=== PATIENT | male | born 1950 ===

== ENCOUNTER 2020-01-17 12:15 | Emergency (ER) | payer OTHER ==
[2020-01-17] MEDS ORDERED: ONDANSETRON HCL INJ/PF 4 MG/2 ML SDV IV ONE ×2 (12:48→17:37)
[2020-01-17] MEDS ORDERED: MORPHINE SULFATE 10 MG/ML INJ IV ONE ×3 (12:48→18:59)
--- NOTE | 2020-01-17 12:50 | ER Document Report ---
ED Medical Screen (RME) - General Chief Complaint: Abdominal Pain Stated Complaint: ABDOMINAL PAIN Time Seen by Provider: 01/17/20 12:42 Primary Care Provider: SIM CARRERA MD [Primary Care Provider] - Follow up as needed Mode of Arrival: Ambulatory Information source: Patient Notes: HPI; 69-year-old male presents to the emergency room with persistent abdominal p ain for the past 13 days. States it comes and goes but has gotten progressively worse over the past 2 days. States he has a history of pancreatitis unknown cause. Complains of nausea but no vomiting. PE: Alert and oriented x3. Lungs: Clear to auscultation without rales, rhonchi, wheezes. Heart: Regular rate rhythm without murmurs, rubs, gallops. Unable to do full abdominal exam in triage I have greeted and performed a rapid initial assessment of this patient. A comprehensive ED assessment and evaluation of the patient, analysis of test results and completion of the medical decision making process will be conducted by additional ED providers. I have specifically instructed the patient or family members with the patient to immediately return to any nursing staff should anything change in the patient's condition or with their chief complaint. TRAVEL OUTSIDE OF THE [place] IN LAST 30 DAYS: No - Related Data Allergies/Adverse Reactions: Penicillins Allergy (Verified 01/17/20 12:47) zolpidem [From Ambien] Allergy (Verified 01/17/20 12:47) Past Medical History - Social History Frequency of alcohol use: None Drug Abuse: None Physical Exam - Vital signs Vitals: Temp Pulse Resp BP Pulse Ox 97.5 F 85 16 133/70 H 100 01/17/20 12:24 01/17/20 12:24 01/17/20 12:24 01/17/20 12:24 01/17/20 12:24 Course - Vital Signs Vital signs: Temp Pulse Resp BP Pulse Ox 97.5 F 85 16 133/70 H 100 01/17/20 12:24 01/17/20 12:24 01/17/20 12:24 01/17/20 12:24 01/17/20 12:24 Doctor's Discharge - Discharge Referrals: SIM CARRERA MD [Primary Care Provider] - Follow up as needed
[2020-01-17 13:42] LABS: ABSOLUTE EOSINOPHILS # (AUTO) 0.2 10^3/uL (0.0-0.6); ABSOLUTE LYMPHOCYTES (AUTO) 3.9 10^3/uL (0.5-4.7); ABSOLUTE MONOCYTES (AUTO) 0.7 10^3/uL (0.1-1.4); ABSOLUTE NEUT (AUTO) 4.5 10^3/uL (1.7-8.2); BASOPHILS % (AUTO) 0.4 % (0-2); EOSINOPHILS % (AUTO) 1.8 % (0-6); HEMOGLOBIN 18.6 g/dL (13.5-17.0); LYMPHOCYTES % (AUTO) 41.7 % (13-45); MEAN CORPUSCULAR HEMOGLOBIN 29.8 pg (27.0-33.4); MEAN CORPUSCULAR HGB CONC 33.7 g/dL (32.0-36.0); MEAN CORPUSCULAR VOLUME 88 fl (80-97); MONOCYTES % (AUTO) 7.2 % (3-13); PLATELET COUNT 211 10^3/uL (150-450); RED BLOOD COUNT 6.25 10^6/uL (4.35-5.55); RED CELL DISTRIBUTION WIDTH 14.3 % (11.5-14.0); SEGMENTED NEUTROPHILS % (AUTO) 48.9 % (42-78); TOTAL CELLS COUNTED % (AUTO) 100 %; WHITE BLOOD COUNT 9.3 10^3/uL (4.0-10.5)
[2020-01-17 13:46] LABS: HEMATOCRIT 55.3 % (37.9-51.0)
[2020-01-17 14:03] LABS: ALBUMIN 4.6 g/dL (3.5-5.0); ALKALINE PHOSPHATASE 99 U/L (38-126); AMYLASE 69 U/L (30-110); ANION GAP 9 (5-19); ASPARTATE AMINO TRANSFERASE 39 U/L (17-59); BILIRUBIN,DIRECT 0.4 mg/dL (0.0-0.4); BILIRUBIN,TOTAL 1.1 mg/dL (0.2-1.3); BLOOD UREA NITROGEN 23 mg/dL (7-20); CALCIUM 10.2 mg/dL (8.4-10.2); CARBON DIOXIDE 30 mmol/L (22-30); CHLORIDE 101 mmol/L (98-107); GLUCOSE 104 mg/dL (75-110); POTASSIUM 4.6 mmol/L (3.6-5.0); TOTAL PROTEIN 7.7 g/dL (6.3-8.2)
--- NOTE | 2020-01-17 15:35 | RADIOLOGY REPORT (SQ) ---
EXAM DESCRIPTION: CT ABD/PELVIS NO ORAL OR IV IMAGES COMPLETED DATE/TIME: 01/17/2020 3:19 pm REASON FOR STUDY: abdominal pain COMPARISON: None. TECHNIQUE: CT scan of the abdomen and pelvis performed without intravenous or oral contrast. Images reviewed with lung, soft tissue, and bone windows. Reconstructed coronal and sagittal MPR images revi ewed. All images stored on PACS. All CT scanners at this facility use dose modulation, iterative reconstruction, and/or weight based d osing when appropriate to reduce radiation dose to as low as reasonably achievable (ALARA). [facility]: Dose Right [facility]: CareDose [facility]: Dose Right [facility]: Teradose 4D [facility]: Smava RADIATION DOSE: CT Rad equipment meets quality standard of care and radiation dose reduction techniq ues were employed. CTDIvol: 6.8 mGy. DLP: 369 mGy-cm.mGy. LIMITATIONS: None. FINDINGS: LOWER CHEST: No significant findings. No nodules or infiltrates. NON-CONTRASTED LIVER, SPLEEN, ADRENALS: Evaluation limited by lack of IV contrast. No identified sign ificant masses. PANCREAS: No masses. No peripancreatic inflammatory changes. GALLBLADDER: Surgically absent. RIGHT KIDNEY AND URETER: Surgically absent. LEFT KIDNEY AND URETER: No suspicious masses. Assessment limited by lack of IV contrast. No signifi cant calcifications. No hydronephrosis or hydroureter. AORTA AND RETROPERITONEUM: 3.6 cm infrarenal aortic aneurysm. BOWEL AND PERITONEAL CAVITY: No obvious masses or inflammatory changes. No free fluid. APPENDIX: Surgically absent. PELVIS, BLADDER, AND ABDOMINAL WALL:No abnormal masses. No free fluid. Bladder normal. BONES: No significant findings. OTHER: No other significant finding. IMPRESSION: 3.6 cm aortic aneurysm. Status post right nephrectomy. No acute findings. COMMENT: Quality ID # [id number]: Final reports with documentation of one or more dose reduction techniques (e.g., Automated exposure control, adjustment of the mA and/or kV according to patient size, use of iterative reconstruction technique) TECHNICAL DOCUMENTATION: JOB ID: [id number] 2010 [employer]- All Rights Reserved Reading location - IP/workstation name: [email or web address]
[2020-01-17] MEDS ORDERED: NORMAL SALINE 1000 ML 1,000 ML IV ONE (17:37)
--- NOTE | 2020-01-17 17:38 | ER Document Report ---
ED GI/ - General Chief Complaint: Abdominal Pain Stated Complaint: ABDOMINAL PAIN Time Seen by Provider: 01/17/20 12:42 Primary Care Provider: [facility] [Provider Group] - Follow up as needed SIM CARRERA MD [COMMUNITY BASED STAFF] - Follow up as needed Mode of Arrival: Ambulatory Information source: Patient Notes: Patient presents complaining of abdominal pain for the past 13 days that worsened over the past 2 days. Patient has a history of pancreatitis and suspects the same today. Patient reports nausea without any vomiting or diarrhea. Patient denies any fever. Patient denies any urinary symptoms. Patient reports decreased oral intake over the past several days as he was trying to manage his pancreatitis symptoms at home and he knows food exacerbates the symptoms. TRAVEL OUTSIDE OF THE [place] IN LAST 30 DAYS: No - HPI Patient complains to provider of: Abdominal pain. No: Vomiting Onset: Other - 2 weeks Timing/Duration: Worse Quality of pain: Sharp Pain Level: 5 Location: Epigastric, Other - Umbilical Associated symptoms: Loss of appetite, Nausea. denies: Diarrhea, Fever, Vomiting Exacerbated by: Denies Relieved by: Denies Similar symptoms previously: Yes Recently seen / treated by doctor: No - Related Data Allergies/Adverse Reactions: Penicillins Allergy (Verified 01/17/20 12:47) zolpidem [From Ambien] Allergy (Verified 01/17/20 12:47) Past Medical History - General Information source: Patient - Social History Smoking Status: Current Every Day Smoker Frequency of alcohol use: None Drug Abuse: None Lives with: Family Family History: Reviewed & Not Pertinent - Past Medical History Cardiac Medical History: Reports: Other - Aortic aneurysm, peripheral vascular disease Pulmonary Medical History: Reports: Hx COPD, Other - Pulmonary nodule Malignancy Medical History: Reports Hx Renal (Kidney) Cancer GI Medical History: Reports: Hx Pancreatitis Past Surgical History: Reports: Hx Cardiac Surgery, Hx Cholecystectomy, Hx Kidney (Renal Surgery) - Right nephrectomy Review of Systems - Review of Systems Constitutional: No symptoms reported. denies: Fever EENT: No symptoms reported Cardiovascular: No symptoms reported. denies: Chest pain Respiratory: No symptoms reported. denies: Cough Gastrointestinal: Abdominal pain, Nausea, Poor appetite, Poor fluid intake. denies: Diarrhea, Vomiting Genitourinary: No symptoms reported. denies: Dysuria Male Genitourinary: No symptoms reported Musculoskeletal: No symptoms reported. denies: Back pain Skin: No symptoms reported Hematologic/Lymphatic: No symptoms reported Neurological/Psychological: No symptoms reported Physical Exam - Vital signs Vitals: Temp Pulse Resp BP Pulse Ox 97.5 F 85 16 133/70 H 100 01/17/20 12:24 01/17/20 12:24 01/17/20 12:24 01/17/20 12:24 01/17/20 12:24 - General General appearance: Appears well, Alert In distress: None - HEENT Head: Normocephalic, Atraumatic Eyes: Normal Conjunctiva: Normal Nasal: Normal Mouth/Lips: Normal Mucous membranes: Normal Pharynx: Normal Neck: Normal, Supple. No: Lymphadenopathy - Respiratory Respiratory status: No respiratory distress Chest status: Nontender Breath sounds: Normal. No: Rales, Rhonchi, Stridor, Wheezing Chest palpation: Normal - Cardiovascular Rhythm: Regular Heart sounds: S1 appreciated, S2 appreciated Murmur: No - Abdominal Inspection: Normal Distension: No distension Bowel sounds: Normal Tenderness: Tender - Epigastric, periumbilical. No: Guarding Organomegaly: No organomegaly - Back Back: Normal, Nontender - Extremities General upper extremity: Normal inspection, Normal strength General lower extremity: Normal inspection, Normal strength - Neurological Neuro grossly intact: Yes Cognition: Normal Hamilton Coma Scale Eye Opening: Spontaneous Hamilton Coma Scale Verbal: Oriented Corey Coma Scale Motor: Obeys Commands Corey Coma Scale Total: 15 - Psychological Associated symptoms: Normal affect, Normal mood - Skin Skin Temperature: Warm Skin Moisture: Dry Skin Color: Normal Course - Re-evaluation Re-evalutation: 01/17/20 20:25 Patient with abdominal tenderness for the past 2 weeks that he attributes to likely pancreatitis. Patient states that his lipase does not typically increase significantly when he has pancreatitis. Patient has not had any vomiting during his stay and nausea is resolved at this time. Patient reports continued abdominal pain although denies needing any additional pain medication at this time. Patient with no acute abnormality noted on CT scan, no leukocytosis. Patient CBC appeared to be concentrated and he did have a small increase in his BUN and creatinine worrisome for dehydration, IV fluids were administered. Patient encouraged to increase oral fluids at home. - Vital Signs Vital signs: Temp Pulse Resp BP Pulse Ox 97.9 F 50 L 16 128/75 H 95 01/17/20 21:00 01/17/20 20:10 01/17/20 21:01 01/17/20 21:01 01/17/20 21:01 - Laboratory Result Diagrams: 01/17/20 13:25 01/17/20 13:25 Laboratory results interpreted by me: 01/17/20 01/17/20 01/17/20 13:25 13:25 19:36 RBC 6.25 H Hgb 18.6 H Hct 55.3 H RDW 14.3 H BUN 23 H Creatinine 1.40 H Est GFR (MDRD) Non-Af 50 L Lipase 373.8 H Urine Blood SMALL H Ur Leukocyte Esterase TRACE H 01/17/20 20:30 Labs- All tests 24 hr 01/17/20 01/17/20 01/17/20 13:25 13:25 19:36 WBC 9.3 RBC 6.25 H Hgb 18.6 H Hct 55.3 H MCV 88 MCH 29.8 MCHC 33.7 RDW 14.3 H Plt Count 211 Lymph % (Auto) 41.7 [place] % (Auto) 7.2 Eos % (Auto) 1.8 Baso % (Auto) 0.4 Absolute Neuts (auto) 4.5 Absolute Lymphs (auto) 3.9 Absolute Monos (auto) 0.7 Absolute Eos (auto) 0.2 Absolute Basos (auto) 0.0 Seg Neutrophils % 48.9 Sodium 140.0 Potassium 4.6 Chloride 101 Carbon Dioxide 30 Anion Gap 9 BUN 23 H Creatinine 1.40 H Est GFR ( Amer) > 60 Est GFR (MDRD) Non-Af 50 L Glucose 104 Calcium 10.2 Total Bilirubin 1.1 Direct Bilirubin 0.4 Neonat Total Bilirubin Not Reportable Neonat Direct Bilirubin Not Reportable Neonat Indirect Bili Not Reportable AST 39 ALT 24 Alkaline Phosphatase 99 Total Protein 7.7 Albumin 4.6 Amylase 69 Lipase 373.8 H Urine Color YELLOW Urine Appearance CLEAR Urine pH 5.0 Ur Specific [place] 1.013 Urine Protein NEGATIVE Urine Glucose (UA) NEGATIVE Urine Ketones NEGATIVE Urine Blood SMALL H Urine Nitrite NEGATIVE Urine Bilirubin NEGATIVE Urine Urobilinogen NEGATIVE Ur Leukocyte Esterase TRACE H Urine WBC (Auto) 6 Urine RBC (Auto) 1 U Hyaline Cast (Auto) 2 Urine Bacteria (Auto) 2+ Urine Mucus (Auto) RARE Urine Ascorbic Acid NEGATIVE - Diagnostic Test Radiology reviewed: Reports reviewed Discharge - Discharge Clinical Impression: Dehydration, Elevated lipase Abdominal pain Qualifiers: Abdominal location: unspecified location Qualified Code(s): R10.9 - Unspecified abdominal pain Condition: Stable Disposition: HOME, SELF-CARE Instructions: Abdominal Pain ([facility]), Antinausea Medication ([facility]), Dehydration ([facility]), Intravenous (IV) Fluids ([facility]), Oral Narcotic Medication ([facility]) Additional Instructions: Return immediately for any new or worsening symptoms Followup with your primary care provider, call tomorrow to make a followup appointment Increase oral fluids and stay well-hydrated Urine culture is pending, we will call if you need any different treatment Prescriptions: Hydrocodone/Acetaminophen [Hollister 5-325 mg Tablet] 1 tab PO Q6 PRN #8 tablet PRN Reason: Ondansetron [Zofran Odt 4 mg Tablet] 1 tab PO Q6H #15 tab.rapdis Referrals: SIM CARRERA MD [COMMUNITY BASED STAFF] - Follow up as needed [facility] [Provider Group] - Follow up as needed
[2020-01-17 20:01] LABS: APPEARANCE,URINE CLEAR; BILIRUBIN,URINE NEGATIVE (NEGATIVE); COLOR,URINE YELLOW; GLUCOSE, URINE NEGATIVE (NEGATIVE); KETONES,URINE NEGATIVE (NEGATIVE); LEUKOCYTE ESTERASE,URINE TRACE (NEGATIVE); NITRITE,URINE NEGATIVE (NEGATIVE); PROTEIN,URINE NEGATIVE (NEGATIVE); URINE SPECIFIC GRAVITY 1.013; UROBILINOGEN,URINE NEGATIVE mg/dL (<2.0)
[2020-01-17 21:11] VITALS: BP 128/75
== END 2020-01-17 21:12 | disposition home or self-care (01) ==
LOC: ER 12:15
DX: R10.9 Unspecified abdominal pain (principal); E86.0 Dehydration; R74.8 Abnormal levels of other serum enzymes; R11.0 Nausea; R63.0 Anorexia; Z88.0 Allergy status to penicillin; F17.200 Nicotine dependence, unspecified, uncomplicated; J44.9 Chronic obstructive pulmonary disease, unspecified
CPT/HCPCS: 96376; 99285; 96361; 96374; 96375; 36415; 87086; 82150; 83690; 85025; 87088; 80053; 81001; 87186; 74176; J2270; J2405; J7030

== ENCOUNTER → 2020-01-30 | Outpatient (CLI) | payer OTHER ==
--- NOTE | 2020-01-30 13:41 | RADIOLOGY REPORT (SQ) ---
EXAM DESCRIPTION: CT CHEST WITHOUT IMAGES COMPLETED DATE/TIME: 01/30/2020 1:00 pm REASON FOR STUDY: OBSTRUCTIVE SLEEP APNEA/PULMONARY NODULE R91.1 SOLITARY PULMONARY NODULE COMPARISON: None. TECHNIQUE: CT scan performed of the chest without intravenous contrast. Images reviewed with lung, soft tissue and bone windows. Reconstructed coronal and sagittal MPR images reviewed. All images st ored on PACS. All CT scanners at this facility use dose modulation, iterative reconstruction, and/or weight based d osing when appropriate to reduce radiation dose to as low as reasonably achievable (ALARA). [facility]: Dose Right [facility]: CareDose [facility]: Dose Right [facility]: Teradose 4D [facility]: [employer] RADIATION DOSE: CT Rad equipment meets quality standard of care and radiation dose reduction techniq ues were employed. CTDIvol: 6.0 mGy. DLP: 258 mGy-cm. mGy. LIMITATIONS: No prior studies. No prior report. FINDINGS: LUNGS AND PLEURA: 6 mm nodule on the left pulmonary apex. No other pulmonary nodules. No infiltrate or effusion. HILAR AND MEDIASTINAL STRUCTURES: No identified masses or abnormal nodes. No obvious aneurysm. HEART AND VASCULAR STRUCTURES: No aneurysm. No pericardial effusion. UPPER ABDOMEN: No significant findings. Limited exam. THYROID AND OTHER SOFT TISSUES: No masses. No adenopathy. BONES: No significant finding. HARDWARE: None in the chest. OTHER: No other significant findings. IMPRESSION: 6 mm left upper lobe pulmonary nodule. No other significant findings. TECHNICAL DOCUMENTATION: JOB ID: [id number] Quality ID # [id number]: Final reports with documentation of one or more dose reduction techniques (e.g., Au tomated exposure control, adjustment of the mA and/or kV according to patient size, use of iterative reconstruction technique) 2010 [employer]- All Rights Reserved Reading location - IP/workstation name: [email or web address]
== END ==
LOC: RAD 13:08
PROVIDERS: ATTEND Internal Medicine Critical Care Medicine
DX: G47.33 Obstructive sleep apnea (adult) (pediatric) (principal); R91.1 Solitary pulmonary nodule; I48.91 Unspecified atrial fibrillation; F43.10 Post-traumatic stress disorder, unspecified; I99.9 Unspecified disorder of circulatory system; R06.83 Snoring
CPT/HCPCS: 71250

== ENCOUNTER 2020-02-25 09:37 | Observation (INO) | payer OTHER, MEDICARE ==
[2020-02-25 10:42] LABS: ABSOLUTE EOSINOPHILS # (AUTO) 0.2 10^3/uL (0.0-0.6); ABSOLUTE MONOCYTES (AUTO) 0.6 10^3/uL (0.1-1.4); BASOPHILS % (AUTO) 0.5 % (0-2); HEMATOCRIT 49.2 % (37.9-51.0); HEMOGLOBIN 16.7 g/dL (13.5-17.0); LYMPHOCYTES % (AUTO) 33.6 % (13-45); MEAN CORPUSCULAR HEMOGLOBIN 29.6 pg (27.0-33.4); MEAN CORPUSCULAR HGB CONC 33.9 g/dL (32.0-36.0); MEAN CORPUSCULAR VOLUME 87 fl (80-97); MONOCYTES % (AUTO) 7.3 % (3-13); PLATELET COUNT 213 10^3/uL (150-450); RED BLOOD COUNT 5.64 10^6/uL (4.35-5.55); SEGMENTED NEUTROPHILS % (AUTO) 56.6 % (42-78); TOTAL CELLS COUNTED % (AUTO) 100 %; WHITE BLOOD COUNT 8.9 10^3/uL (4.0-10.5)
--- NOTE | 2020-02-25 10:50 | ER Document Report ---
ED GI Bleed / Rectal Pain - General Chief Complaint: Rectal Bleeding Stated Complaint: RECTAL BLEEDING-DR REFERRED Time Seen by Provider: 02/25/20 10:50 Primary Care Provider: MARGUERITE,CEZAR [Primary Care Provider] - Follow up as needed Notes: Patient is a 69-year-old male who presents emergency department with bleeding f rom his rectum. Patient states that 5 days prior to his colonoscopy, which was done on February 19 he stopped his Eliquis. This past Tuesday, he started bleeding. The next day he ended up taking his Eliquis and had some more bleeding. Patient continues to have clots come out. She has a history of stage III kidney cancer with a nephrectomy, atrial fibrillation, cholecystectomy, and hypertension. TRAVEL OUTSIDE OF THE [place] IN LAST 30 DAYS: No - Related Data Allergies/Adverse Reactions: Penicillins Allergy (Verified 01/17/20 12:47) zolpidem [From Ambien] Allergy (Verified 01/17/20 12:47) Past Medical History - Social History Smoking Status: Current Every Day Smoker Family History: Reviewed & Not Pertinent - Past Medical History Cardiac Medical History: Reports: Hx Hypertension Pulmonary Medical History: Reports: Hx COPD Renal/ Medical History: Reports: Hx End Stage Renal Disease Malignancy Medical History: Reports Hx Renal (Kidney) Cancer GI Medical History: Reports: Hx Pancreatitis Past Surgical History: Reports: Hx Cardiac Surgery, Hx Cholecystectomy, Hx Kidney (Renal Surgery) - Right nephrectomy Review of Systems - Review of Systems Notes: REVIEW OF SYSTEMS: CONSTITUTIONAL : Denies recent illness. Denies recent unintentional weight loss. Denies fever, chills, or sweats. EENT: Denies eye, ear, throat, or mouth pain, discharge, or symptoms. Denies nasal or sinus congestion. CARDIOVASCULAR: Denies chest pain. RESPIRATORY: Denies shortness of breath, cough, congestion, difficulty breathing, or wheezing. GASTROINTESTINAL: See HPI. GENITOURINARY: Denies difficulty urinating, burning, blood in urine, urgency or frequency. MUSCULOSKELETAL: Denies neck and back pain. Denies joint pain or swelling. SKIN: Denies rash, itchiness, or lesions HEMATOLOGIC : Denies easy bruising or bleeding. LYMPHATIC: Denies swollen, painful, enlarged glands. NEUROLOGICAL: Denies no numbness or tingling denies weakness. Denies headache. Denies altered mental status. Denies alteration in speech. PSYCHIATRIC: Denies stress, anxiety, alteration in sleep patterns, or depress ion. All other systems reviewed and negative. Physical Exam - Vital signs Vitals: Temp Pulse Resp BP Pulse Ox 97.6 F 100 20 130/98 H 97 02/25/20 09:44 02/25/20 09:44 02/25/20 09:44 02/25/20 09:44 02/25/20 09:44 - Notes Notes: PHYSICAL EXAMINATION: GENERAL: Appears well, healthy, well-nourished, no acute distress. HEAD: Normocephalic, atraumatic. EYES: PERRL, conjunctiva normal, all extraocular movements intact, sclera nonicteric ENT: Moist mucous membranes. NECK: Supple, no noticeable swelling, redness, rash. Normal range of motion. LUNGS: Equal breath sounds bilaterally and clear to auscultation. No wheezes rales or rhonchi. CARDIOVASCULAR: S1-S2, regular rate, regular rhythm. Radial pulses 2+, normal. ABDOMEN: Normoactive bowel sounds. Soft, tender generalized abdomen, but mainly in the left lower abdomen., no guarding, no rebound tenderness, and no masses palpated. EXTREMITIES: Normal strength and range of motion, no pitting or edema. No cyanosis. NEUROLOGICAL: Moves all extremities upon command. Strength 5/5 in all extremi ties. PSYCH: Normal mood, normal affect. SKIN: Warm, dry. No rash, lesions, ulcerations noted. Normal skin turgor. Course - Re-evaluation Re-evalutation: 02/25/20 11:21 Hematology and chemistries are both stable. We will send patient for CT of the abdomen pelvis, as he does have tenderness to his left lower quadrant. He has diverticulosis noted on his sigmoid and descending colon. Concern for diverticulitis. 02/25/20 12:[address] Fam, the hospitalist. He would like me to call Dr. Lopez in regards to this patient. 02/25/20 13:[address] Hidalgo and he recommends the patient be admitted and have another colonoscopy. I then spoke with Dr. Fam, who would like me to consult surgery. 02/25/20 13:[address] Melendez, the surgeon will inform home. He states that he will consult. I then spoke with Dr. Fam. He will evaluate the patient. 02/25/20 14:[address] Fam, he will admit the patient for observation on the medical floor. - Vital Signs Vital signs: Temp Pulse Resp BP Pulse Ox 97.6 F 62 20 130/95 H 98 02/25/20 09:44 02/25/20 13:16 02/25/20 13:10 02/25/20 13:16 02/25/20 13:10 - Laboratory Result Diagrams: 02/25/20 10:15 02/25/20 10:15 Laboratory results interpreted by me: 02/25/20 02/25/20 10:15 10:15 RBC 5.64 H Est GFR (MDRD) Non-Af 59 L - EKG Interpretation by Me Additional EKG results interpreted by me: 02/25/20 14:23 Atrial fibrillation. Rate 54. QRS 104; QT 408; QTc 387. PVC noted. No evidence of myocardial infarction. Discharge - Discharge Clinical Impression: GI bleed Qualifiers: GI bleed type/associated pathology: unspecified gastrointestinal hemorrhage type Qualified Code(s): K92.2 - Gastrointestinal hemorrhage, unspecified Atrial fibrillation Qualifiers: Atrial fibrillation type: unspecified Qualified Code(s): I48.91 - Unspecified atrial fibrillation Condition: Stable Disposition: ADMITTED OBSERVATION Unit Admitted: Medical Floor [facility]: [facility] [Primary [facility] - Follow up as needed
[2020-02-25 11:06] LABS: ALBUMIN 4.3 g/dL (3.5-5.0); ALKALINE PHOSPHATASE 95 U/L (38-126); ANION GAP 8 (5-19); ASPARTATE AMINO TRANSFERASE 34 U/L (17-59); BILIRUBIN,DIRECT 0.4 mg/dL (0.0-0.4); BILIRUBIN,TOTAL 1.1 mg/dL (0.2-1.3); BLOOD UREA NITROGEN 20 mg/dL (7-20); CALCIUM 10.2 mg/dL (8.4-10.2); CARBON DIOXIDE 29 mmol/L (22-30); CHLORIDE 105 mmol/L (98-107); GLUCOSE 96 mg/dL (75-110); POTASSIUM 4.8 mmol/L (3.6-5.0); TOTAL PROTEIN 7.5 g/dL (6.3-8.2)
--- NOTE | 2020-02-25 12:27 | RADIOLOGY REPORT (SQ) ---
EXAM DESCRIPTION: CT ABD/PELVIS WITH IV ONLY IMAGES COMPLETED DATE/TIME: 02/25/2020 12:11 pm REASON FOR STUDY: rectal bleeding COMPARISON: 01/17/2020 TECHNIQUE: CT scan of the abdomen and pelvis performed using helical scanning technique with dynamic intravenous contrast injection. No oral contrast. Images reviewed with lung, soft tissue, and bone windows. Reconstructed coronal and sagittal MPR images reviewed. Delayed images for evaluation of the urinary system also acquired. All images stored on PACS. All CT scanners at this facility use dose modulation, iterative reconstruction, and/or weight based d osing when appropriate to reduce radiation dose to as low as reasonably achievable (ALARA). [facility]: Dose Right [facility]: CareDose [facility]: Dose Right [facility]: Teradose 4D [facility]: [facility] CONTRAST TYPE AND DOSE: contrast/concentration: Isovue 300.00 mmol/ml; Total Contrast Delivered: 80. 0 ml; Total Saline Delivered: 52.4 ml RENAL FUNCTION: BUN 20, creatinine 1.2 RADIATION DOSE: CT Rad equipment meets quality standard of care and radiation dose reduction techniq ues were employed. CTDIvol: 4.8 - 4.8 mGy. DLP: 501 mGy-cm.. LIMITATIONS: None. FINDINGS: LOWER CHEST: No significant findings. No nodules or infiltrates. LIVER: Normal size. No masses. No dilated ducts. SPLEEN: Normal size. No focal lesions. PANCREAS: No masses. No significant calcifications. No adjacent inflammation or peripancreatic fluid collections. Pancreatic duct not dilated. GALLBLADDER: Surgically absent. ADRENAL GLANDS: No significant masses or asymmetry. RIGHT KIDNEY AND URETER: Surgically absent. LEFT KIDNEY AND URETER: There is a 1 cm hypoattenuating lesion in the left kidney. Hounsfield units measure 45. This could represent complex cyst. Solid lesion cannot be excluded. No significant ca lcifications. No hydronephrosis or hydroureter. AORTA AND VESSELS: Stable infrarenal aneurysm is abdominal aorta. Largest diameter is 3.6 cm. Exten sive mural thrombus. Atherosclerotic changes the origin of the celiac axis. No high-grade stenosis. The SMA is widely patent. The LILIYA is occluded. RETROPERITONEUM: No retroperitoneal adenopathy, hemorrhage or masses. BOWEL AND PERITONEAL CAVITY: No masses or inflammatory changes. No free fluid or peritoneal masses. APPENDIX: Surgically absent. PELVIS: No mass. No free fluid. Normal bladder. ABDOMINAL WALL: No masses. No hernias. BONES: No significant or acute findings. OTHER: No other significant finding. IMPRESSION: 1. Prior right nephrectomy. 2. Stable 3.6 cm infrarenal abdominal aortic aneurysm. Extensive mural thrombus. 3. This study was not tailored for GI bleed evaluation but there is no evidence of active GI bleed. TECHNICAL DOCUMENTATION: JOB ID: [id number] Quality ID # [id number]: Final reports with documentation of one or more dose reduction techniques (e.g., Au tomated exposure control, adjustment of the mA and/or kV according to patient size, use of iterative reconstruction technique) 2010 [employer]- All Rights Reserved Reading location - IP/workstation name: [email or web address]
[2020-02-25 12:57] LABS: INTERNATIONAL RATION (INR) 1.11; PARTIAL THROMBOPLASTIN TIME 35.5 SEC (23.5-35.8); PROTHROMBIN TIME 14.5 SEC (11.4-15.4)
[2020-02-25 13:46] LABS: APPEARANCE,URINE CLEAR; BILIRUBIN,URINE NEGATIVE (NEGATIVE); COLOR,URINE YELLOW; GLUCOSE, URINE NEGATIVE (NEGATIVE); KETONES,URINE NEGATIVE (NEGATIVE); LEUKOCYTE ESTERASE,URINE NEGATIVE (NEGATIVE); NITRITE,URINE NEGATIVE (NEGATIVE); PROTEIN,URINE NEGATIVE (NEGATIVE); URINE SPECIFIC GRAVITY 1.026; UROBILINOGEN,URINE NEGATIVE mg/dL (<2.0)
[2020-02-25] MEDS ORDERED: ONDANSETRON 4 MG TAB.RAPDIS PO PRN (14:04)
[2020-02-25] MEDS ORDERED: ACETAMINOPHEN 325 MG TABLET PO PRN (14:04)
[2020-02-25] MEDS ORDERED: NORMAL SALINE 1000 ML 1,000 ML IV ONE (14:11)
--- NOTE | 2020-02-25 14:17 | PDOC CONSULTATION ---
Consultation Consult Date: 02/25/20 Attending physician:: HOSEA SANCHEZ Provider Consulted: CONNIE JOSHI Consult reason:: He has intestinal bleeding History of Present Illness Admission Date/PCP: [facility] History of Present Illness: CARRIE GRACE is a 69 year old male [facility] emergency department via ground rescue complaining of a 1 day history of bright red blood per rectum. Patient is 5 days status post total colonoscopy by Dr. Hidalgo who apparently removed a polyp. Patient historically is on Eliquis for atrial fibrillation. This was stopped 5 days prior to the procedure, and resumed over the weekend, but no Eliquis over the last 48 hours. Patient is seen in the emergency department where he is found to be hemodynamically stable with a hemoglobin of 16. A CT scan of the abdomen and pelvis demonstrated no pathologic findings, a known 3.6 cm AAA, and absence of right kidney. Patient had several more bloody bowel movements in the emergency department, was seen by the hospitalist service, and advised admission. 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, nonalcoholic pancreatitis, chronic renal disease, GERD, hiatal hernia, Moe's esophagus Cardiac Medical History: Reports: Hypertension Pulmonary Medical History: Reports: Chronic Obstructive Pulmonary Disease (COPD) Renal/ Medical History: Reports: End Stage Renal Disease Malignancy Medical History: Reports: Renal (Kidney) Cancer Past Surgical History Past Surgical History: History of Nancy cystectomy , hernia repair Past Surgical History: Reports: Cholecystectomy Social History Information Source: Patient Smoking Status: Current Every Day Smoker Electronic Cigarette use?: No Hx Recreational Drug Use: No Hx Prescription Drug Abuse: No Family History Family History: None, Reviewed & Not Pertinent Parental Family History Reviewed: No Children Family History Reviewed: No Sibling(s) Family History Reviewed.: No Medication/Allergy Home Medications: Hydrocodone/Acetaminophen [Almond 5-325 mg Tablet] 1 tab PO Q6 PRN #8 tablet 01/17/20 Ondansetron [Zofran Odt 4 mg Tablet] 1 tab PO Q6H #15 tab.rapdis 01/17/20 Allergies/Adverse Reactions: Penicillins Allergy (Verified 01/17/20 12:47) zolpidem [From Ambien] Allergy (Verified 01/17/20 12:47) Review of Systems Constitutional: PRESENT: as per HPI Eyes: PRESENT: other - Patient wears glasses. ABSENT: visual disturbances Ears: ABSENT: hearing changes Cardiovascular: PRESENT: other - Known atrial fibrillation with controlled ventricular response Gastrointestinal: PRESENT: as per HPI Neurological: ABSENT: abnormal gait, abnormal speech, confusion, dizziness, focal weakness, syncope Physical Exam Vital Signs: Temp Pulse Resp BP Pulse Ox 97.6 F 62 20 130/95 H 98 02/25/20 09:44 02/25/20 13:16 02/25/20 13:10 02/25/20 13:16 02/25/20 13:10 Intake & Output 02/24/20 02/25/20 02/26/20 06:59 06:59 06:59 Weight 70.6 kg General appearance: PRESENT: mild distress Head exam: PRESENT: normocephalic Eye exam: PRESENT: EOMI, other - Classes on Mouth exam: PRESENT: dry mucosa Neck exam: PRESENT: full ROM Respiratory exam: PRESENT: clear to auscultation [place]mira Cardiovascular exam: PRESENT: other - Heart rate in the 60s, A. fib Pulses: PRESENT: normal carotid pulses, normal radial pulses, normal femoral pulses GI/Abdominal exam: PRESENT: other - Abdomen tender in the epigastric area to moderate palpation Rectal exam: PRESENT: other - Bright red blood in receptacle at bedside Extremities exam: PRESENT: +1 edema Neurological exam: PRESENT: oriented to person, oriented to place, oriented to time, oriented to situation Psychiatric exam: PRESENT: appropriate affect Skin exam: PRESENT: dry Results Laboratory Results: 02/25/20 10:15 02/25/20 10:15 02/25/20 02/25/20 02/25/20 10:15 10:15 13:07 WBC 8.9 RBC 5.64 H Hgb 16.7 Hct 49.2 MCV 87 MCH 29.6 MCHC 33.9 RDW 14.0 Plt Count 213 Seg Neutrophils % 56.6 Sodium 141.9 Potassium 4.8 Chloride 105 Carbon Dioxide 29 Anion Gap 8 BUN 20 Creatinine 1.22 Est GFR ( Amer) > 60 Glucose 96 Calcium 10.2 Total Bilirubin 1.1 AST 34 Alkaline Phosphatase 95 Total Protein 7.5 Albumin 4.3 Lipase 141.9 Urine Color YELLOW Urine Appearance CLEAR Urine pH 6.0 Ur Specific [place] 1.026 Urine Protein NEGATIVE Urine Glucose (UA) NEGATIVE Urine Ketones NEGATIVE Urine Blood NEGATIVE Urine Nitrite NEGATIVE Ur Leukocyte Esterase NEGATIVE Urine WBC (Auto) 0 Urine RBC (Auto) 1 Impressions: Abdomen/Pelvis CT 02/25/20 11:20 IMPRESSION: 1. Prior right nephrectomy. 2. Stable 3.6 cm infrarenal abdominal aortic aneurysm. Extensive mural thrombus. 3. This study was not tailored for GI bleed evaluation but there is no evidence of active GI bleed. Assessment & Plan - Diagnosis (1) Bright red blood per rectum Is this a current diagnosis for this admission?: Yes Plan: Impression: Bright red blood per rectum most consistent with lower GI bleed following recent colonoscopy with polypectomy while patient resumed Eliquis; now off Eliquis and likely stable with normal hemoglobin. Recommendations: 1. Agree with admission for observation; no indication for further treatment at this time 2. We will follow with you; if patient rebleeds, further evaluation including radiologic and/or endoscopic evaluation may be required. (2) Smoker Is this a current diagnosis for this admission?: Yes (3) Chronic pancreatitis Is this a current diagnosis for this admission?: Yes (4) Status post colonoscopy with polypectomy Is this a current diagnosis for this admission?: Yes (5) Anticoagulated Is this a current diagnosis for this admission?: Yes (6) Atrial fibrillation Is this a current diagnosis for this admission?: Yes (7) Moe esophagus Is this a current diagnosis for this admission?: Yes (8) Hypertension Is this a current diagnosis for this admission?: Yes - Time Time Spent: 30 to 50 Minutes Smoking Cessation Education: 3 to 10 minutes Medications reviewed and adjusted accordingly: Yes Anticipated discharge: Home
--- NOTE | 2020-02-25 15:37 | PDOC H&P ---
History of Present Illness Admission Date/PCP: 02/25/20 14:04 [facility] Patient complains of: Black tarry stools, GI bleed. History of Present Illness: CARRIE GRACE is a 69 year old male with past medical history of A. fib (Eliquis), chronic non-alcoholic pancreatitis, CKD, GERD and Moe's esophagus who presented to the ED with concerns regarding 5-day history of melena. He is 5 days status post colonoscopy with polypectomy by Dr. Hidalgo and . Since he has experienced 1-2 black tarry bowel movements daily with associated blood clots in the toilet bowl. Denies episodes of melena prior to colonoscopy. Reports 7-week history of lightheadedness after passing bowel movements, this has remained constant without increase in severity. Additionally he underwent a EGD 7 days ago notable for gastritis, Moe's esophagus and hiatal hernia. Biopsy from t his is pending. Upon questioning denies fever, chills, chest pain, shortness of breath, nausea, vomiting, or changes in vision. In the emergency department patient was found to be hemodynamically stable with a hemoglobin of 16. CT abdomen notable for right nephrectomy, stable 3.6cm infrarenal AAA, without evidence of active GI bleed. Patient historically on this was stopped 10 days ago and she took single dose over the weekend, denies Eliquis in the past 48 hours. Patient wants admitted to the hospitalist service for further observation and treatment. Past Medical History Cardiac Medical History: Reports: Atrial Fibrillation, Coronary Artery Disease, Hypertension, Peripheral Vascular Disease Pulmonary Medical History: Denies: Asthma, Chronic Obstructive Pulmonary Disease (COPD) Neurological Medical History: Reports: Other - TIA Denies: Seizures Endocrine Medical History: Denies: Diabetes Mellitus Type 1, Diabetes Mellitus Type 2 Renal/ Medical History: Reports: End Stage Renal Disease Malignancy Medical History: Reports: Renal (Kidney) Cancer GI Medical History: Reports: Hiatal Hernia, Other - Chronic pancreatitis. Moe's esophagus. Hematology: Denies: Bleeding Tendencies Infectious Medical History: Denies: Hepatitis B, Hepatitis C Past Surgical History Past Surgical History: Reports: Cholecystectomy, Coronary Stent, Other - Nephrectomy Social History Information Source: Patient Lives with: Spouse/Significant other Smoking Status: Current Every Day Smoker Electronic Cigarette use?: No Frequency of Alcohol Use: None Hx Recreational Drug Use: No Hx Prescription Drug Abuse: No - Advance Directive Resuscitation Status: Full Code Family History Family History: CAD, Hypertension Parental Family History Reviewed: Yes Children Family History Reviewed: Yes Sibling(s) Family History Reviewed.: Yes Medication/Allergy Home Medications: Hydrocodone/Acetaminophen [Jelm 5-325 mg Tablet] 1 tab PO Q6 PRN #8 tablet 01/17/20 Ondansetron [Zofran Odt 4 mg Tablet] 1 tab PO Q6H #15 tab.rapdis 01/17/20 Allergies/Adverse Reactions: Penicillins Allergy (Verified 01/17/20 12:47) zolpidem [From Ambien] Allergy (Verified 01/17/20 12:47) Review of Systems Constitutional: PRESENT: other - Lightheaded when standing. ABSENT: anorexia, fatigue, fever(s), headache(s), night sweats, weakness Eyes: ABSENT: visual disturbances Nose, Mouth, and Throat: ABSENT: headache(s), vertigo Cardiovascular: ABSENT: chest pain, dyspnea on exertion, orthropnea, pal pitations Respiratory: ABSENT: cough, dyspnea Gastrointestinal: PRESENT: hematochezia, melena. ABSENT: abdominal pain, coffee ground emesis, constipation, diarrhea, hematemesis, nausea, vomiting Genitourinary: ABSENT: difficulty urinating, dysuria, hematuria Musculoskeletal: ABSENT: back pain, muscle weakness Integumentary: ABSENT: diaphoresis, pruritus, rash Neurological: PRESENT: dizziness. ABSENT: confusion, focal weakness, numbness, syncope, vertigo, weakness Psychiatric: ABSENT: anxiety, depression Endocrine: ABSENT: cold intolerance, polydipsia, polyphagia, polyuria Hematologic/Lymphatic: ABSENT: easy bleeding, easy bruising Physical Exam Vital Signs: Temp Pulse Resp BP Pulse Ox 97.6 F 62 20 130/95 H 98 02/25/20 09:44 02/25/20 13:16 02/25/20 13:10 02/25/20 13:16 02/25/20 13:10 Intake & Output 02/24/20 02/25/20 02/26/20 06:59 06:59 06:59 Weight 70.6 kg General appearance: PRESENT: no acute distress, cooperative, well-developed, well-nourished Head exam: PRESENT: atraumatic, normocephalic Eye exam: PRESENT: EOMI. ABSENT: conjunctiva pale, scleral icterus Mouth exam: PRESENT: moist, tongue midline Neck exam: PRESENT: full ROM. ABSENT: JVD, tenderness Respiratory exam: PRESENT: clear to auscultation [place], symmetrical, unlabored. ABSENT: crackles, tachypnea, wheezes Cardiovascular exam: PRESENT: irregular rhythm, other - Rate in the 60s GI/Abdominal exam: PRESENT: soft, tenderness - Diffuse tenderness. ABSENT: distended, firm, guarding Extremities exam: PRESENT: full ROM. ABSENT: clubbing, pedal edema, tenderness Musculoskeletal exam: PRESENT: ambulatory, full ROM. ABSENT: deformity, d islocation Neurological exam: PRESENT: alert, awake, oriented to person, oriented to place, oriented to time, oriented to situation, CN II-XII grossly intact. ABSENT: altered, motor sensory deficit Psychiatric exam: PRESENT: appropriate affect, normal mood Skin exam: PRESENT: dry, intact, warm Results Laboratory Results: 02/25/20 10:15 02/25/20 10:15 02/25/20 02/25/20 02/25/20 10:15 10:15 13:07 WBC 8.9 RBC 5.64 H Hgb 16.7 Hct 49.2 MCV 87 MCH 29.6 MCHC 33.9 RDW 14.0 Plt Count 213 Seg Neutrophils % 56.6 Sodium 141.9 Potassium 4.8 Chloride 105 Carbon Dioxide 29 Anion Gap 8 BUN 20 Creatinine 1.22 Est GFR ( Amer) > 60 Glucose 96 Calcium 10.2 Total Bilirubin 1.1 AST 34 Alkaline Phosphatase 95 Total Protein 7.5 Albumin 4.3 Lipase 141.9 Urine Color YELLOW Urine Appearance CLEAR Urine pH 6.0 Ur Specific [place] 1.026 Urine Protein NEGATIVE Urine Glucose (UA) NEGATIVE Urine Ketones NEGATIVE Urine Blood NEGATIVE Urine Nitrite NEGATIVE Ur Leukocyte Esterase NEGATIVE Urine WBC (Auto) 0 Urine RBC (Auto) 1 Impressions: Abdomen/Pelvis CT 02/25/20 11:20 IMPRESSION: 1. Prior right nephrectomy. 2. Stable 3.6 cm infrarenal abdominal aortic aneurysm. Extensive mural thrombus. 3. This study was not tailored for GI bleed evaluation but there is no evidence of active GI bleed. Assessment and Plan - Diagnosis (1) GI bleed Qualifiers: GI bleed type/associated pathology: unspecified gastrointestinal hemorrhage type Qualified Code(s): K92.2 - Gastrointestinal hemorrhage, unspecified Is this a current diagnosis for this admission?: Yes Plan: Most likely lower GI bleed s/p colonoscopy with polypectomy Hemodynamically stable. Hgb 16.7. Initiate IV fluids IV Protonix twice daily Patient for observation Surgery consulted, note reviewed. Orthostatic vital signs every shift. Monitor CBC. (2) Status post colonoscopy with polypectomy Is this a current diagnosis for this admission?: Yes Plan: Treatment as discussed above. (3) Atrial fibrillation Qualifiers: Atrial fibrillation type: longstanding persistent Qualified Code(s): I48.11 - Longstanding persistent atrial fibrillation Is this a current diagnosis for this admission?: Yes Plan: Treated with Eliquis. Stopped 10 days ago, took single dose following procedure. Eliquis for greater than 48 hours. Hold Eliquis at this time. (4) Chronic pancreatitis Qualifiers: Pancreatitis type: idiopathic Qualified Code(s): K86.1 - Other chronic pancreatitis Is this a current diagnosis for this admission?: Yes Plan: Nonalcoholic chronic pancreatitis. [facility] Lipase 141.9 on admission. No intervention needed at this time. (5) Hypertension Qualifiers: Hypertension type: essential hypertension Qualified Code(s): I10 - Essential (primary) hypertension Is this a current diagnosis for this admission?: Yes Plan: History of hypertension. Resume home medications (6) Smoker Is this a current diagnosis for this admission?: Yes Plan: Daily tobacco use. Offered patient nicotine patch. (7) Orthostatic hypotension Is this a current diagnosis for this admission?: Yes Plan: Initial orthostatics with minimal drop on diastolic BP. IVF initiated. Monitor every shift. - Time Time Spent with patient: 35 or more minutes Smoking Cessation Education: 3 to 10 minutes Medications reviewed and adjusted accordingly: Yes Anticipated Discharge Disposition: Home, Self Care Anticipated Discharge Timeframe: within 24 hours
--- NOTE | 2020-02-25 17:26 | EKG REPORT ---
SEVERITY:- ABNORMAL ECG - ATRIAL FIBRILLATION MULTIPLE PREMATURE COMPLEXES, VENT RIGHT AXIS DEVIATION LOW VOLTAGE IN FRONTAL LEADS BORDERLINE T ABNORMALITIES, INFERIOR LEADS : Confirmed by: Fabio Hollis MD 25-Feb-2020 17:26:02
[2020-02-25] MEDS: PANTOPRAZOLE SODIUM 40 MG VIAL IV SCH (21:54)
[2020-02-26 06:18] LABS: HEMATOCRIT 43.4 % (37.9-51.0); HEMOGLOBIN 14.7 g/dL (13.5-17.0); MEAN CORPUSCULAR HEMOGLOBIN 29.7 pg (27.0-33.4); MEAN CORPUSCULAR HGB CONC 33.9 g/dL (32.0-36.0); MEAN CORPUSCULAR VOLUME 88 fl (80-97); PLATELET COUNT 178 10^3/uL (150-450); RED BLOOD COUNT 4.95 10^6/uL (4.35-5.55)
[2020-02-26 06:38] LABS: ANION GAP 9 (5-19); BLOOD UREA NITROGEN 15 mg/dL (7-20); CALCIUM 9.1 mg/dL (8.4-10.2); CARBON DIOXIDE 23 mmol/L (22-30); CHLORIDE 107 mmol/L (98-107); GLUCOSE 89 mg/dL (75-110)
--- NOTE | 2020-02-26 09:02 | PDOC PROGRESS REPORT ---
Subjective Progress Note for:: 02/26/20 Reason For Visit: GI BLEED Patient feels fine has no further bleeding Physical Exam Vital Signs: Temp Pulse Resp BP Pulse Ox 97.8 F 66 18 145/86 H 97 02/26/20 08:23 02/26/20 08:23 02/26/20 08:23 02/26/20 08:23 02/26/20 08:23 Intake & Output 02/25/20 02/26/20 02/27/20 06:59 06:59 06:59 Intake Total 1260 Balance 1260 Weight 72.4 kg General appearance: PRESENT: no acute distress GI/Abdominal exam: PRESENT: other - Benign abdomen Results Laboratory Results: 02/26/20 05:47 02/26/20 05:47 02/25/20 02/25/20 02/25/20 10:15 10:15 13:07 WBC 8.9 RBC 5.64 H Hgb 16.7 Hct 49.2 MCV 87 MCH 29.6 MCHC 33.9 RDW 14.0 Plt Count 213 Seg Neutrophils % 56.6 Sodium 141.9 Potassium 4.8 Chloride 105 Carbon Dioxide 29 Anion Gap 8 BUN 20 Creatinine 1.22 Est GFR ( Amer) > 60 Glucose 96 Calcium 10.2 Magnesium Total Bilirubin 1.1 AST 34 Alkaline Phosphatase 95 Total Protein 7.5 Albumin 4.3 Lipase 141.9 Urine Color YELLOW Urine Appearance CLEAR Urine pH 6.0 Ur Specific [place] 1.026 Urine Protein NEGATIVE Urine Glucose (UA) NEGATIVE Urine Ketones NEGATIVE Urine Blood NEGATIVE Urine Nitrite NEGATIVE Ur Leukocyte Esterase NEGATIVE Urine WBC (Auto) 0 Urine RBC (Auto) 1 02/26/20 02/26/20 05:47 05:47 WBC 8.0 RBC 4.95 Hgb 14.7 Hct 43.4 MCV 88 MCH 29.7 MCHC 33.9 RDW 14.0 Plt Count 178 Seg Neutrophils % Sodium 138.6 Potassium 4.0 Chloride 107 Carbon Dioxide 23 Anion Gap 9 BUN 15 Creatinine 1.01 Est GFR ( Amer) > 60 Glucose 89 Calcium 9.1 Magnesium 1.8 Total Bilirubin AST Alkaline Phosphatase Total Protein Albumin Lipase Urine Color Urine Appearance Urine pH Ur Specific [place] Urine Protein Urine Glucose (UA) Urine Ketones Urine Blood Urine Nitrite Ur Leukocyte Esterase Urine WBC (Auto) Urine RBC (Auto) Impressions: Abdomen/Pelvis CT 02/25/20 11:20 IMPRESSION: 1. Prior right nephrectomy. 2. Stable 3.6 cm infrarenal abdominal aortic aneurysm. Extensive mural thrombus. 3. This study was not tailored for GI bleed evaluation but there is no evidence of active GI bleed. Assessment & Plan - Diagnosis (1) Bright red blood per rectum Is this a current diagnosis for this admission?: Yes Plan: Impression: No further bleeding Recommendations: 1. Continue supportive care; 2. Consider resuming Eliquis in 48 hours 3. Surgery will sign off; reconsult if clinically indicated (2) Smoker Is this a current diagnosis for this admission?: Yes (3) Chronic pancreatitis Qualifiers: Pancreatitis type: idiopathic Qualified Code(s): K86.1 - Other chronic pancreatitis Is this a current diagnosis for this admission?: Yes (4) Status post colonoscopy with polypectomy Is this a current diagnosis for this admission?: Yes (5) Anticoagulated Is this a current diagnosis for this admission?: Yes (6) Atrial fibrillation Qualifiers: Atrial fibrillation type: longstanding persistent Qualified Code(s): I48.11 - Longstanding persistent atrial fibrillation Is this a current diagnosis for this admission?: Yes (7) Moe esophagus Is this a current diagnosis for this admission?: Yes (8) Hypertension Qualifiers: Hypertension type: essential hypertension Qualified Code(s): I10 - Essential (primary) hypertension Is this a current diagnosis for this admission?: Yes - Time Time Spent: 30 to 50 Minutes Critical Time spent with patient: Less than 15 minutes Smoking Cessation Education: 3 to 10 minutes Medications reviewed and adjusted accordingly: Yes Anticipated Discharge Disposition: Home, Self Care Anticipated Discharge Timeframe: within 24 hours
[2020-02-26] MEDS: PANTOPRAZOLE SODIUM 40 MG VIAL IV SCH ×2 (09:59→22:38)
--- NOTE | 2020-02-26 15:32 | PDOC PROGRESS REPORT ---
Subjective Progress Note for:: 02/26/20 Subjective:: Still having bloody stool but denies any dizziness or chest pain Reason For Visit: GI BLEED Physical Exam Vital Signs: Temp Pulse Resp BP Pulse Ox 97.6 F 57 L 18 122/77 98 02/26/20 11:31 02/26/20 11:31 02/26/20 11:31 02/26/20 11:31 02/26/20 11:31 Intake & Output 02/25/20 02/26/20 02/27/20 06:59 06:59 06:59 Intake Total 1260 120 Balance 1260 120 Weight 72.4 kg General appearance: PRESENT: no acute distress, well-developed, well-nourished Head exam: PRESENT: atraumatic, normocephalic Eye exam: PRESENT: conjunctiva pink, EOMI, PERRLA. ABSENT: scleral icterus Ear exam: PRESENT: normal external ear exam Mouth exam: PRESENT: moist, tongue midline Neck exam: ABSENT: carotid bruit, JVD, lymphadenopathy, thyromegaly Respiratory exam: PRESENT: clear to auscultation [place]. ABSENT: rales, rhonchi, wheezes Cardiovascular exam: PRESENT: RRR, +S1, +S2. ABSENT: diastolic murmur, rubs, systolic murmur Pulses: PRESENT: normal dorsalis pedis pul Vascular exam: PRESENT: normal capillary refill GI/Abdominal exam: PRESENT: normal bowel sounds, soft. ABSENT: distended, guarding, mass, organolmegaly, rebound, tenderness Rectal exam: PRESENT: deferred Extremities exam: PRESENT: full ROM. ABSENT: calf tenderness, clubbing, pedal edema Neurological exam: PRESENT: alert, awake, oriented to person, oriented to place, oriented to time, oriented to situation, CN II-XII grossly intact. ABSENT: motor sensory deficit Psychiatric exam: PRESENT: appropriate affect, normal mood. ABSENT: homicidal ideation, suicidal ideation Skin exam: PRESENT: dry, intact, warm. ABSENT: cyanosis, rash Results Laboratory Results: 02/26/20 05:47 02/26/20 05:47 02/26/20 02/26/20 05:47 05:47 WBC 8.0 RBC 4.95 Hgb 14.7 Hct 43.4 MCV 88 MCH 29.7 MCHC 33.9 RDW 14.0 Plt Count 178 Sodium 138.6 Potassium 4.0 Chloride 107 Carbon Dioxide 23 Anion Gap 9 BUN 15 Creatinine 1.01 Est GFR ( Amer) > 60 Glucose 89 Calcium 9.1 Magnesium 1.8 Impressions: Abdomen/Pelvis CT 02/25/20 11:20 IMPRESSION: 1. Prior right nephrectomy. 2. Stable 3.6 cm infrarenal abdominal aortic aneurysm. Extensive mural thrombus. 3. This study was not tailored for GI bleed evaluation but there is no evidence of active GI bleed. Assessment and Plan - Diagnosis (1) Anticoagulated Is this a current diagnosis for this admission?: Yes Plan: Currently on hold (2) Atrial fibrillation Qualifiers: Atrial fibrillation type: longstanding persistent Qualified Code(s): I48.11 - Longstanding persistent atrial fibrillation Is this a current diagnosis for this admission?: Yes Plan: Treated with Eliquis. Stopped 10 days ago, took single dose following procedure. Eliquis for greater than 48 hours. Continue to hold Eliquis at this time. (3) Bright red blood per rectum Is this a current diagnosis for this admission?: Yes Plan: Surgery recommend 1. Continue supportive care; 2. Consider resuming Eliquis in 48 hours 3. Surgery will sign off; reconsult if clinically indicated Advised had large amount of bright red bleeding today. We will continue to hold Eliquis. We will repeat H&H this afternoon and in a.m. If he remains stable and hemoglobin stable can resume Eliquis (4) GI bleed Qualifiers: GI bleed type/associated pathology: unspecified gastrointestinal hemorrhage type Qualified Code(s): K92.2 - Gastrointestinal hemorrhage, unspecified Is this a current diagnosis for this admission?: Yes Plan: Most likely lower GI bleed s/p colonoscopy with polypectomy Hemodynamically stable. Hgb 16.7. Currently no evidence of azotemia (5) Status post colonoscopy with polypectomy Is this a current diagnosis for this admission?: Yes Plan: Treatment as discussed above. - Time Time Spent with patient: 15-24 minutes Medications reviewed and adjusted accordingly: Yes Anticipated Discharge Disposition: Home, Self Care Anticipated Discharge Timeframe: within 24 hours
[2020-02-26 16:22] LABS: ABSOLUTE EOSINOPHILS # (AUTO) 0.1 10^3/uL (0.0-0.6); ABSOLUTE LYMPHOCYTES (AUTO) 2.7 10^3/uL (0.5-4.7); ABSOLUTE MONOCYTES (AUTO) 0.6 10^3/uL (0.1-1.4); ABSOLUTE NEUT (AUTO) 3.9 10^3/uL (1.7-8.2); BASOPHILS % (AUTO) 0.5 % (0-2); EOSINOPHILS % (AUTO) 0.8 % (0-6); HEMATOCRIT 43.3 % (37.9-51.0); HEMOGLOBIN 14.8 g/dL (13.5-17.0); LYMPHOCYTES % (AUTO) 37.3 % (13-45); MEAN CORPUSCULAR HEMOGLOBIN 29.8 pg (27.0-33.4); MEAN CORPUSCULAR HGB CONC 34.1 g/dL (32.0-36.0); MEAN CORPUSCULAR VOLUME 87 fl (80-97); MONOCYTES % (AUTO) 7.7 % (3-13); PLATELET COUNT 187 10^3/uL (150-450); RED BLOOD COUNT 4.96 10^6/uL (4.35-5.55); RED CELL DISTRIBUTION WIDTH 13.9 % (11.5-14.0); SEGMENTED NEUTROPHILS % (AUTO) 53.7 % (42-78); TOTAL CELLS COUNTED % (AUTO) 100 %; WHITE BLOOD COUNT 7.3 10^3/uL (4.0-10.5)
[2020-02-26] MEDS ORDERED: TEMAZEPAM 15 MG CAPSULE PO SCH (22:00)
[2020-02-26] MEDS ORDERED: ATORVASTATIN CALCIUM 40 MG TABLET PO SCH (22:00)
[2020-02-26] MEDS: METOPROLOL TARTRATE 25 MG TABLET PO SCH (22:37)
[2020-02-27] MEDS: METOPROLOL TARTRATE 25 MG TABLET PO SCH (09:25)
[2020-02-27] MEDS: PANTOPRAZOLE SODIUM 40 MG VIAL IV SCH (09:26)
[2020-02-27 10:15] LABS: ABSOLUTE EOSINOPHILS # (AUTO) 0.2 10^3/uL (0.0-0.6); ABSOLUTE MONOCYTES (AUTO) 0.5 10^3/uL (0.1-1.4); ABSOLUTE NEUT (AUTO) 3.9 10^3/uL (1.7-8.2); BASOPHILS % (AUTO) 0.4 % (0-2); EOSINOPHILS % (AUTO) 2.3 % (0-6); HEMATOCRIT 42.4 % (37.9-51.0); HEMOGLOBIN 14.6 g/dL (13.5-17.0); MEAN CORPUSCULAR HEMOGLOBIN 29.9 pg (27.0-33.4); MEAN CORPUSCULAR HGB CONC 34.4 g/dL (32.0-36.0); MEAN CORPUSCULAR VOLUME 87 fl (80-97); MONOCYTES % (AUTO) 6.4 % (3-13); PLATELET COUNT 185 10^3/uL (150-450); RED BLOOD COUNT 4.88 10^6/uL (4.35-5.55); RED CELL DISTRIBUTION WIDTH 13.7 % (11.5-14.0); SEGMENTED NEUTROPHILS % (AUTO) 51.9 % (42-78); TOTAL CELLS COUNTED % (AUTO) 100 %; WHITE BLOOD COUNT 7.6 10^3/uL (4.0-10.5)
--- NOTE | 2020-02-27 11:17 | PDOC DISCHARGE SUMMARY ---
Impression - Admit/DC Date/PCP Admission Date/Primary Care Provider: 02/25/20 14:04 [facility] Discharge Date: 02/27/20 - Discharge Diagnosis (1) Anticoagulated Is this a current diagnosis for this admission?: Yes (2) Atrial fibrillation Is this a current diagnosis for this admission?: Yes (3) Bright red blood per rectum Is this a current diagnosis for this admission?: Yes (4) GI bleed Is this a current diagnosis for this admission?: Yes (5) Status post colonoscopy with polypectomy Is this a current diagnosis for this admission?: Yes - Additional Information Resuscitation Status: Full Code Discharge Diet: Cardiac Discharge Activity: Activity As Tolerated Referrals: [facility] [Primary Care [facility]] - Follow up as needed Home Medications: Atorvastatin Calcium [Lipitor 40 mg Tablet] 40 mg PO QHS 02/25/20 Metoprolol Tartrate [Lopressor 25 mg Tablet] 12.5 mg PO Q12 02/25/20 Pantoprazole Sodium [Protonix [address] Tablet] 40 mg PO QAM 02/25/20 Sennosides/Docusate Sodium [Senna Plus 8.6-50 mg Tablet] 1 each PO QAM 02/25/20 Temazepam [Restoril] 30 mg PO QHS 02/25/20 Apixaban [Eliquis 5 mg Tablet] 5 mg PO BID #0 02/27/20 History of Present Illiness History of Present Illness: CARRIE GRACE is a 69 year old male Patient presents emergency room with complaints of bleeding per rectum 5 days status post colonoscopy with polypectomy. He had bright red bleeding and so patient was admitted for further management. Hospital Course Hospital Course: Patient was monitored on the floor. His initial hemoglobin was 16. His hemoglobin remained relatively stable throughout his hospital stay and required no transfusion. Hemoglobin this morning prior to discharge was 14.6 with no evidence of azotemia. Patient had been on Eliquis prior to the colonoscopy with his last dose on February 22. This continues to be held while in hospital and he has been advised to restart this on February 27. Patient remained hemodynamically stable. With no further interventions been planned as well as hemodynamic stability patient is being discharged home. He was seen by the surgical team on consult with no surgical intervention warranted. Physical Exam Vital Signs: Temp Pulse Resp BP Pulse Ox 97.5 F 74 18 129/79 H 95 02/27/20 08:01 02/27/20 08:01 02/27/20 08:01 02/27/20 08:01 02/27/20 08:01 Intake & Output 02/26/20 02/27/20 02/28/20 06:59 06:59 06:59 Intake Total 1260 616 Balance 1260 616 Weight 72.4 kg 71.6 kg General appearance: PRESENT: no acute distress, well-developed, well-nourished Head exam: PRESENT: atraumatic, normocephalic Eye exam: PRESENT: conjunctiva pink, EOMI, PERRLA. ABSENT: scleral icterus Ear exam: PRESENT: normal external ear exam Mouth exam: PRESENT: moist, tongue midline Neck exam: ABSENT: carotid bruit, JVD, lymphadenopathy, thyromegaly Respiratory exam: PRESENT: clear to auscultation [place]. ABSENT: rales, rhonchi, wheezes Cardiovascular exam: PRESENT: irregular rhythm, +S1, +S2. ABSENT: diastolic murmur, rubs, systolic murmur Pulses: PRESENT: normal dorsalis pedis pul Vascular exam: PRESENT: normal capillary refill GI/Abdominal exam: PRESENT: normal bowel sounds, soft. ABSENT: distended, guarding, mass, organolmegaly, rebound, tenderness Rectal exam: PRESENT: deferred Extremities exam: PRESENT: full ROM. ABSENT: calf tenderness, clubbing, pedal edema Neurological exam: PRESENT: alert, awake, oriented to person, oriented to place, oriented to time, oriented to situation, CN II-XII grossly intact. ABSENT: motor sensory deficit Psychiatric exam: PRESENT: appropriate affect, normal mood. ABSENT: homicidal ideation, suicidal ideation Skin exam: PRESENT: dry, intact, warm. ABSENT: cyanosis, rash Results Laboratory Results: WBC 7.6 10^3/uL (4.0-10.5) 02/27/20 09:23 RBC 4.88 10^6/uL (4.35-5.55) 02/27/20 09:23 Hgb 14.6 g/dL (13.5-17.0) 02/27/20 09:23 Hct 42.4 % (37.9-51.0) 02/27/20 09:23 MCV 87 fl (80-97) 02/27/20 09:23 MCH 29.9 pg (27.0-33.4) 02/27/20 09:23 MCHC 34.4 g/dL (32.0-36.0) 02/27/20 09:23 RDW 13.7 % (11.5-14.0) 02/27/20 09:23 Plt Count 185 10^3/uL (150-450) 02/27/20 09:23 Lymph % (Auto) 39.0 % (13-45) 02/27/20 09:23 [place] % (Auto) 6.4 % (3-13) 02/27/20 09:23 Eos % (Auto) 2.3 % (0-6) 02/27/20 09:23 Baso % (Auto) 0.4 % (0-2) 02/27/20 09:23 Absolute Neuts (auto) 3.9 10^3/uL (1.7-8.2) 02/27/20 09:23 Absolute Lymphs (auto) 3.0 10^3/uL (0.5-4.7) 02/27/20 09:23 Absolute Monos (auto) 0.5 10^3/uL (0.1-1.4) 02/27/20 09:23 Absolute Eos (auto) 0.2 10^3/uL (0.0-0.6) 02/27/20 09:23 Absolute Basos (auto) 0.0 10^3/uL (0.0-0.2) 02/27/20 09:23 Seg Neutrophils % 51.9 % (42-78) 02/27/20 09:23 PT 14.5 SEC (11.4-15.4) 02/25/20 10:15 INR 1.11 02/25/20 10:15 APTT 35.5 SEC (23.5-35.8) 02/25/20 10:15 Sodium 138.6 mmol/L (137-145) 02/26/20 05:47 Potassium 4.0 mmol/L (3.6-5.0) 02/26/20 05:47 Chloride 107 mmol/L (98-107) 02/26/20 05:47 Carbon Dioxide 23 mmol/L (22-30) 02/26/20 05:47 Anion Gap 9 (5-19) 02/26/20 05:47 BUN 15 mg/dL (7-20) 02/26/20 05:47 Creatinine 1.01 mg/dL (0.52-1.25) 02/26/20 05:47 Est GFR ( Amer) > 60 (>60) 02/26/20 05:47 Est GFR (MDRD) Non-Af > 60 (>60) 02/26/20 05:47 Glucose 89 mg/dL (75-110) 02/26/20 05:47 Calcium 9.1 mg/dL (8.4-10.2) 02/26/20 05:47 Magnesium 1.8 mg/dL (1.6-2.3) 02/26/20 05:47 Total Bilirubin 1.1 mg/dL (0.2-1.3) 02/25/20 10:15 Direct Bilirubin 0.4 mg/dL (0.0-0.4) 02/25/20 10:15 Neonat Total Bilirubin Not Reportable 02/25/20 10:15 Neonat Direct Bilirubin Not Reportable 02/25/20 10:15 Neonat Indirect Bili Not Reportable 02/25/20 10:15 AST 34 U/L (17-59) 02/25/20 10:15 ALT 18 U/L (<50) 02/25/20 10:15 Alkaline Phosphatase 95 U/L (38-126) 02/25/20 10:15 Total Protein 7.5 g/dL (6.3-8.2) 02/25/20 10:15 Albumin 4.3 g/dL (3.5-5.0) 02/25/20 10:15 Lipase 141.9 U/L (23-300) 02/25/20 10:15 Urine Color YELLOW 02/25/20 13:07 Urine Appearance CLEAR 02/25/20 13:07 Urine pH 6.0 (5.0-9.0) 02/25/20 13:07 Ur Specific [place] 1.026 02/25/20 13:07 Urine Protein NEGATIVE mg/dL (NEGATIVE) 02/25/20 13:07 Urine Glucose (UA) NEGATIVE mg/dL (NEGATIVE) 02/25/20 13:07 Urine Ketones NEGATIVE mg/dL (NEGATIVE) 02/25/20 13:07 Urine Blood NEGATIVE (NEGATIVE) 02/25/20 13:07 Urine Nitrite NEGATIVE (NEGATIVE) 02/25/20 13:07 Urine Bilirubin NEGATIVE (NEGATIVE) 02/25/20 13:07 Urine Urobilinogen NEGATIVE mg/dL (<2.0) 02/25/20 13:07 Ur Leukocyte Esterase NEGATIVE (NEGATIVE) 02/25/20 13:07 Urine WBC (Auto) 0 /HPF 02/25/20 13:07 Urine RBC (Auto) 1 /HPF 02/25/20 13:07 Urine Ascorbic Acid NEGATIVE (NEGATIVE) 02/25/20 13:07 Impressions: Abdomen/Pelvis CT 02/25/20 11:20 IMPRESSION: 1. Prior right nephrectomy. 2. Stable 3.6 cm infrarenal abdominal aortic aneurysm. Extensive mural thrombus. 3. This study was not tailored for GI bleed evaluation but there is no evidence of active GI bleed. Plan Time Spent: Less than 30 Minutes Stroke Is this a Stroke Patient?: No Acute Heart Failure Is this a Heart Failure Patient?: No
[2020-02-27 11:41] VITALS: BP 140/74
== END 2020-02-27 12:12 | disposition home or self-care (01) ==
LOC: ER 09:37 → EH 14:04 → 4S 19:53
PROVIDERS: ADMIT Internal Medicine; ATTEND Internal Medicine
DX: K62.5 Hemorrhage of anus and rectum (principal); I48.11 Longstanding persistent atrial fibrillation; K86.1 Other chronic pancreatitis; Z79.01 Long term (current) use of anticoagulants; K22.70 Barrett's esophagus without dysplasia; J44.9 Chronic obstructive pulmonary disease, unspecified; I12.0 Hypertensive chronic kidney disease with stage 5 chronic kidney disease or end stage renal disease; N18.6 End stage renal disease; I95.1 Orthostatic hypotension; Z98.890 Other specified postprocedural states; F17.200 Nicotine dependence, unspecified, uncomplicated; Z88.0 Allergy status to penicillin; Z88.8 Allergy status to other drugs, medicaments and biological substances; Z79.899 Other long term (current) drug therapy; I71.4 Abdominal aortic aneurysm, without rupture
CPT/HCPCS: 93005; 99285; 36415 ×3; 83690; 83735; 85025 ×2; 85027; 85610; 85730; 80048; 80053; 81001; 74177; 93010; G0378 ×3; J3490 ×3; C9113 ×3; J7030